=== PATIENT | male | born 1995 | race African-American/Black ===

== ENCOUNTER 2017-06-08 22:17 | Emergency (ER) | payer SELFPAY ==
[~2017-06-08] VITALS: Ht 185.4 cm; Wt 108.9 kg
--- NOTE | 2017-06-08 22:44 | ER Report ---
History and Physical Time Seen By MD: 22:43 Hx. of Stated Complaint: CHEAST PAIN FOR A WEEK; HARD TIME BREATHING; CHEAST HURTS WHEN BREATHING HPI/ROS CHIEF COMPLAINT: Cough HISTORY OF PRESENT ILLNESS: 21-year-old male complains of a cough productive of small amounts of blood has resolved and no ongoing hemoptysis. Violent coughing previously. Cough has been going on for a week and is normally dry. Associated symptoms include chest pain and tenderness along the costosternal border. Generalized muscle aches by aches and malaise. No known fevers. No other concerns or complaints. REVIEW OF SYSTEMS: Respiratory: No respiratory distress or cyanosis no foreign body inhalation Cardiovascular: No chest pain, no palpitations. Gastrointestinal: No vomiting, no abdominal pain. Musculoskeletal: No back pain. Allergies: Coded Allergies: No Known Drug Allergies (Unverified , 06/08/17) Home Meds No Active Prescriptions or Reported Meds Hx Substance Use Disorder: No Hx Alcohol Use: Yes (OCC.) Constitutional Vital Sign - Last 24 Hours 06/08/17 22:22 Temp 97.9 Pulse 73 Resp 18 B/P (MAP) 141/93 Pulse Ox 100 O2 Delivery Room Air Physical Exam General Appearance: The patient is alert, has no immediate need for airway protection and no current signs of toxicity. No acute distress Eyes: Pupils equal and round no injection. Pharynx: Mild erythema no signs of peritonsillar abscess Respiratory: Chest is non tender, lungs are clear to auscultation. No coughing during exam Cardiac: regular rate and rhythm no murmurs gallops or rubs Gastrointestinal: Abdomen is soft and non tender, no masses, bowel sounds normal. Musculoskeletal: Neck: Neck is supple and non tender. Extremities have full range of motion and are non tender. Skin: No rashes or lesions. No edema DIFFERENTIAL DIAGNOSIS: After history and physical exam differential diagnosis was considered for viral upper Rester infection, cough, pneumonia, influenza, strep Medical Decision Making Data Points Result Diagram: 06/08/17 8091 Laboratory Hematology Test 06/08/17 23:19 06/08/17 23:40 Red Blood Count 5.49 M/uL (4.00-5.60) Mean Corpuscular Volume 87.4 fL (80.0-96.0) Mean Corpuscular Hemoglobin 29.3 pg (26.0-33.0) Mean Corpuscular Hemoglobin Concent 33.5 g/dL (32.0-36.0) Red Cell Distribution Width 13.7 % (11.5-14.5) Mean Platelet Volume 7.0 fL (7.2-11.1) Neutrophils (%) (Auto) 54.3 % (39.4-72.5) Lymphocytes (%) (Auto) 36.2 % (17.6-49.6) Monocytes (%) (Auto) 7.8 % (4.1-12.4) Eosinophils (%) (Auto) 0.8 % (0.4-6.7) Basophils (%) (Auto) 0.9 % (0.3-1.4) Nucleated RBC Relative Count (auto) 0.0 /100WBC Neutrophils # (Auto) 4.2 K/uL (2.0-7.4) Lymphocytes # (Auto) 2.8 K/uL (1.3-3.6) Monocytes # (Auto) 0.6 K/uL (0.3-1.0) Eosinophils # (Auto) 0.1 K/uL (0.0-0.5) Basophils # (Auto) 0.1 K/uL (0.0-0.1) Nucleated RBC Absolute Count (auto) 0.00 K/uL Troponin I < 0.012 ng/ml Influenza Virus Type A (PCR) Negative (NEGATIVE) Influenza Virus Type B (PCR) Negative (NEGATIVE) Chemistry Test 06/08/17 23:19 06/08/17 23:40 White Blood Count 7.7 k/uL (4.5-11.0) Red Blood Count 5.49 M/uL (4.00-5.60) Hemoglobin 16.1 g/dL (14.0-18.0) Hematocrit 48.0 % (42.0-52.0) Mean Corpuscular Volume 87.4 fL (80.0-96.0) Mean Corpuscular Hemoglobin 29.3 pg (26.0-33.0) Mean Corpuscular Hemoglobin Concent 33.5 g/dL (32.0-36.0) Red Cell Distribution Width 13.7 % (11.5-14.5) Platelet Count 249 K/uL (150-450) Mean Platelet Volume 7.0 fL (7.2-11.1) Neutrophils (%) (Auto) 54.3 % (39.4-72.5) Lymphocytes (%) (Auto) 36.2 % (17.6-49.6) Monocytes (%) (Auto) 7.8 % (4.1-12.4) Eosinophils (%) (Auto) 0.8 % (0.4-6.7) Basophils (%) (Auto) 0.9 % (0.3-1.4) Nucleated RBC Relative Count (auto) 0.0 /100WBC Neutrophils # (Auto) 4.2 K/uL (2.0-7.4) Lymphocytes # (Auto) 2.8 K/uL (1.3-3.6) Monocytes # (Auto) 0.6 K/uL (0.3-1.0) Eosinophils # (Auto) 0.1 K/uL (0.0-0.5) Basophils # (Auto) 0.1 K/uL (0.0-0.1) Nucleated RBC Absolute Count (auto) 0.00 K/uL Troponin I < 0.012 ng/ml Influenza Virus Type A (PCR) Negative (NEGATIVE) Influenza Virus Type B (PCR) Negative (NEGATIVE) ED Course/Re-evaluation ED Course Plan a care agreed-upon part orders placed X-ray was reviewed and results discussed with the patient Serologies were reviewed and results discussed with the patient Home care use of medication therapy humidification of air follow-up outpatient and reasons to return to the ED were discussed with the patient. Patient is to return for ongoing or worsening hemoptysis. No signs of pulmonary embolus present today. Decision to Disposition Date: Jun 09, 2017 Decision to Disposition Time: 00:53 Depart Departure Latest Vital Signs Vital Signs Date Time Temp Pulse Resp B/P (MAP) Pulse Ox O2 Delivery O2 Flow Rate FiO2 06/08/17 22:22 97.9 73 18 141/93 100 Room Air Impression: Primary Impression: Cough Additional Impressions: Costochondritis History of hemoptysis Condition: Improved Disposition: HOME OR SELF-CARE New Scripts Benzonatate 100 Mg Cap (TESSALON PERLE 100 MG CAP) 100 Mg Capsule 100 MG PO TID, #15 CAP Prov: SARAH GILSE MD 06/09/17 Patient Instructions: Acute Cough (ED), Hemoptysis (ED) Problem Qualifiers SARAH GILES MD Jun 08, 2017 22:44
--- NOTE | 2017-06-08 23:13 | EKG ---
FAC[place] [facility] [place]IENT NAME: TACHO CARDENAS : [id number] MR: [id number] V: [id number] EXAM DATE: ORDERING PHYSICIAN: SARAH GILES TECHNOLOGIST: FROILAN Perales Reason : HTN Blood Pressure : / mmHG Vent. Rate : 065 BPM Atrial Rate : 065 BPM P-R Int : 186 ms QRS Dur : 088 ms QT Int : 386 ms P-R-T Axes : 042 070 058 degrees QTc Int : 401 ms Sinus rhythm Diffuse ST elevation - suspect early repolarization, but cannot exclude other causes No previous ECGs available Confirmed by KRYS LOMBARDO ([id number]) on 06/09/2017 5:48:08 AM Referred By: Confirmed By:KRYS LOMBARDO
--- NOTE | 2017-06-08 23:24 | RADIOLOGY IMAGING REPORT ---
[place] [facility] [place] Laurence [place] : 1995 MR: [id number] V: [id number] EXAM DATE: ORDERING PHYSICIAN: SARAH GILES TECHNOLOGIST: Location: [facility] - [place] Patient: Laurence Garcia : 1995 Visit/Account:[id number] Date of Sevice: 06/08/2017 CHEST: Indication: Dyspnea and wheezing. Technique: Frontal and lateral views were obtained. Comparison: None. Skeletal and soft tissue structures: Intact and unremarkable. Heart and mediastinum: Within normal limits. Lung morton: Well-expanded and clear. No focal or diffuse opacities. Pleural spaces: Unremarkable. Impression: No acute process. Report Dictated By: Shen Valiente MD at 06/08/2017 11:19 PM Report E-Signed By: Shen Valiente MD at 06/08/2017 11:20 PM [id number]
[2017-06-08 23:28] LABS: PLATELET COUNT, AUTOMATED 249 K/uL (150-450)
[2017-06-09] MEDS ORDERED: BENZ100C4 PO (00:55)
[2017-06-09 01:10] VITALS: BP 122/74
== END 2017-06-09 01:08 | disposition home or self-care (01) ==
LOC: ER 22:56
DX: M94.0 Chondrocostal junction syndrome [Tietze] (principal); R05 Cough
CPT/HCPCS: 36415; 71046; 84484; 85025; 87502; 93005; 99282

== ENCOUNTER 2017-07-13 05:42 | Emergency (ER) | payer MEDICAID ==
[~2017-07-13 05:42] MED LIST: BENZ100C4 PO
[2017-07-13 05:46] VITALS: BP 131/95
--- NOTE | 2017-07-13 05:59 | ER Report ---
History and Physical Time Seen By MD: 05:52 Hx. of Stated Complaint: Pt reports have cough for over a month now. Also reports sore throat. Pt reports coughing up blood last two days. HPI/ROS CHIEF COMPLAINT: cough, hemoptysis HISTORY OF PRESENT ILLNESS: This is a 21 year old male. He has had a cough for over a month now. Was evaluated here in the ER on June 08, negative x-ray at that time and negative influenza. He has never gotten better. Cough now worsened and coughing up some blood. Also with a sore throat and congestion. No chest pain. No abdominal pain or nausea/vomiting. REVIEW OF SYSTEMS: Constitutional: No fever or chills Eyes: No vision changes. ENT: As above. Cardiovascular: No chest pain. No palpitations. Respiratory: As above. Gastrointestinal: No abdominal pain. No nausea or vomiting. No change in bowel movements. No blood in the stool or melena. Genitourinary: No dysuria. No hematuria. Musculoskeletal: No musculoskeletal pain. Skin: No rashes. No bruising. Neurological: No weakness. No headache. Allergies: Coded Allergies: No Known Drug Allergies (Unverified , 07/13/17) Home Meds Active Scripts Benzonatate 100 Mg Cap (TESSALON PERLE 100 MG CAP) 100 Mg Capsule, 100 MG PO TID , #21 CAP Prov:RENEE GARCIA MD 07/13/17 Azithromycin (ZITHROMAX) 250 Mg Tablet, 0 PO QDAY, #6 TAB Take 2 tablets today, then one daily for 4 more days Prov:RENEE GARCIA MD 07/13/17 Discontinued Scripts Benzonatate 100 Mg Cap (TESSALON PERLE 100 MG CAP) 100 Mg Capsule, 100 MG PO TID , #15 CAP Prov:SARAH GILES MD 06/09/17 Reviewed Nurses Notes: Yes Hx Substance Use Disorder: No Hx Alcohol Use: Yes (OCC.) Constitutional Vital Sign - Last 24 Hours 07/13/17 07/13/17 07/13/17 07/13/17 05:45 05:46 06:42 06:57 Temp 98.8 Pulse 71 65 69 Resp 12 B/P (MAP) 131/95 (107) 131/95 Pulse Ox 99 96 97 O2 Delivery Room Air 07/13/17 07:12 Pulse 69 Pulse Ox 96 Physical Exam General Appearance: The patient is alert. No acute distress. Eyes: Pupils are equal, round. No pallor, injection or icterus. ENT: Mucous membranes are moist. Normal oral mucosa. Posterior oropharynx has erythema and hypertrophy, but no exudates. Neck: Supple and non tender. Some submandibular lymphadenopathy. Respiratory: Lungs are clear to auscultation. Cardiovascular: Regular rate and rhythm. No murmurs, gallops or rubs. Normal capillary refill. No edema. Gastrointestinal: Abdomen is soft and non tender. Nondistended. Neurological: Alert and oriented x3. No focal neurologic deficits. Skin: Warm and dry. DIFFERENTIAL DIAGNOSIS: After history and physical exam, differential diagnosis was considered for cough with hemoptysis Medical Decision Making Data Points Result Diagram: 07/13/1705 07/13/17 06 Laboratory Hematology Test 07/13/17 06:05 Red Blood Count 5.75 M/uL (4.00-5.60) Mean Corpuscular Volume 87.3 fL (80.0-96.0) Mean Corpuscular Hemoglobin 29.6 pg (26.0-33.0) Mean Corpuscular Hemoglobin Concent 33.9 g/dL (32.0-36.0) Red Cell Distribution Width 13.5 % (11.5-14.5) Mean Platelet Volume 7.0 fL (7.2-11.1) Neutrophils (%) (Auto) 49.4 % (39.4-72.5) Lymphocytes (%) (Auto) 41.2 % (17.6-49.6) Monocytes (%) (Auto) 7.5 % (4.1-12.4) Eosinophils (%) (Auto) 1.2 % (0.4-6.7) Basophils (%) (Auto) 0.7 % (0.3-1.4) Nucleated RBC Relative Count (auto) 0.0 /100WBC Neutrophils # (Auto) 4.4 K/uL (2.0-7.4) Lymphocytes # (Auto) 3.7 K/uL (1.3-3.6) Monocytes # (Auto) 0.7 K/uL (0.3-1.0) Eosinophils # (Auto) 0.1 K/uL (0.0-0.5) Basophils # (Auto) 0.1 K/uL (0.0-0.1) Nucleated RBC Absolute Count (auto) 0.00 K/uL Prothrombin Time 13.4 seconds (12.0-14.4) Prothromb Time International Ratio 1.02 Activated Partial Thromboplast Time 29 seconds (23-35) Sodium Level 139 mmol/L (137-145) Potassium Level 3.8 mmol/L (3.5-5.0) Chloride Level 102 mmol/L (98-107) Carbon Dioxide Level 24 mmol/L (22-30) Blood Urea Nitrogen 19 mg/dl (9-21) Creatinine 1.10 mg/dl (0.66-1.25) Glomerular Filtration Rate Calc > 60.0 Random Glucose 93 mg/dl (75-110) Calcium Level 9.4 mg/dl (8.4-10.2) Total Bilirubin 0.5 mg/dl (0.2-1.3) Aspartate Amino Transf (AST/SGOT) 36 U/L (0-35) Alanine Aminotransferase (ALT/SGPT) 55 U/L (0-56) Alkaline Phosphatase 67 U/L (0-126) Total Protein 7.9 gm/dl (6.3-8.2) Albumin 4.4 g/dl (3.5-5.0) Influenza Virus Type A (PCR) Negative (NEGATIVE) Influenza Virus Type B (PCR) Negative (NEGATIVE) Group A Streptococcus Screen Negative (NEGATIVE) Chemistry Test 07/13/17 06:05 White Blood Count 8.9 k/uL (4.5-11.0) Red Blood Count 5.75 M/uL (4.00-5.60) Hemoglobin 17.0 g/dL (14.0-18.0) Hematocrit 50.2 % (42.0-52.0) Mean Corpuscular Volume 87.3 fL (80.0-96.0) Mean Corpuscular Hemoglobin 29.6 pg (26.0-33.0) Mean Corpuscular Hemoglobin Concent 33.9 g/dL (32.0-36.0) Red Cell Distribution Width 13.5 % (11.5-14.5) Platelet Count 294 K/uL (150-450) Mean Platelet Volume 7.0 fL (7.2-11.1) Neutrophils (%) (Auto) 49.4 % (39.4-72.5) Lymphocytes (%) (Auto) 41.2 % (17.6-49.6) Monocytes (%) (Auto) 7.5 % (4.1-12.4) Eosinophils (%) (Auto) 1.2 % (0.4-6.7) Basophils (%) (Auto) 0.7 % (0.3-1.4) Nucleated RBC Relative Count (auto) 0.0 /100WBC Neutrophils # (Auto) 4.4 K/uL (2.0-7.4) Lymphocytes # (Auto) 3.7 K/uL (1.3-3.6) Monocytes # (Auto) 0.7 K/uL (0.3-1.0) Eosinophils # (Auto) 0.1 K/uL (0.0-0.5) Basophils # (Auto) 0.1 K/uL (0.0-0.1) Nucleated RBC Absolute Count (auto) 0.00 K/uL Prothrombin Time 13.4 seconds (12.0-14.4) Prothromb Time International Ratio 1.02 Activated Partial Thromboplast Time 29 seconds (23-35) Glomerular Filtration Rate Calc > 60.0 Calcium Level 9.4 mg/dl (8.4-10.2) Total Bilirubin 0.5 mg/dl (0.2-1.3) Aspartate Amino Transf (AST/SGOT) 36 U/L (0-35) Alanine Aminotransferase (ALT/SGPT) 55 U/L (0-56) Alkaline Phosphatase 67 U/L (0-126) Total Protein 7.9 gm/dl (6.3-8.2) Albumin 4.4 g/dl (3.5-5.0) Influenza Virus Type A (PCR) Negative (NEGATIVE) Influenza Virus Type B (PCR) Negative (NEGATIVE) Group A Streptococcus Screen Negative (NEGATIVE) Coagulation Test 07/13/17 06:05 Prothrombin Time 13.4 seconds Prothromb Time International Ratio 1.02 Activated Partial Thromboplast Time 29 seconds EKG/Imaging Imaging CTA CHEST WW/O CNTR (PULM ANG) HISTORY: Hematemesis. TECHNIQUE: CTA chest with intravenous contrast attention to pulmonary arteries. Sagittal, coronal and slab 3D MIP coronal reconstructed images were also created for further evaluation and interpretation. One of the following dose optimization techniques was utilized in the performance of this exam: Automated exposure control; adjustment of the mA and/ or kV according to the patient's size; or use of an iterative reconstruction technique. Specific details can be referenced in the facility's radiology CT exam operational policy. CONTRAST: 75 mL Isovue-370. COMPARISON: None. FINDINGS: Heart/vessels: Negative. Satisfactory opacification of the pulmonary arteries without visualized pulmonary embolus. Mediastinum: Small amount of wedge-shaped soft tissue within the anterior mediastinum, most compatible with residual thymic tissue. The esophagus is grossly unremarkable. Lymph nodes: Negative. Lungs/pleura: 2-3 mm solid nodule within the left upper lobe (image 123 of series 4). Otherwise negative. No visualized mass, consolidation, or infiltrate. Visualized upper abdomen: Negative. Bones/soft tissues: Moderate bilateral gynecomastia. IMPRESSION: 1. No acute findings. There is no visualized pulmonary embolus. No CT explanation for the patient's clinical symptoms. 2. Incidental note of a 2-3 mm solid nodule within the left upper lobe which is most compatible with prior infectious/inflammatory process. Report Dictated By: Sánchez Pitts MD at 07/13/2017 6:39 AM ED Course/Re-evaluation Clinical Indication for ER IV: IV Access ED Course Uncertain cause of symptoms. Possible viral. Some changes in lungs that could represent atypical infection as well. No pneumonia. Will treat with benzonatate and Azithromycin. Recommend follow-up with Pulmonology. Decision to Disposition Date: Jul 13, 2017 Decision to Disposition Time: 06:52 Depart Departure Latest Vital Signs Vital Signs Date Time Temp Pulse Resp B/P (MAP) Pulse Ox O2 Delivery O2 Flow Rate FiO2 07/13/17 07:12 69 96 07/13/17 05:46 98.8 12 131/95 Room Air Impression: Primary Impression: Cough Condition: Condition Unchanged Disposition: HOME OR SELF-CARE New Scripts Benzonatate 100 Mg Cap (TESSALON PERLE 100 MG CAP) 100 Mg Capsule 100 MG PO TID, #21 CAP Prov: RENEE GARCIA MD 07/13/17 Azithromycin (ZITHROMAX) 250 Mg Tablet 0 PO QDAY, #6 TAB Take 2 tablets today, then one daily for 4 more days Prov: RENEE GARCIA MD 07/13/17 Patient Instructions: Chronic Cough (ED) Additional Instructions: We did not find a specific cause of your cough. Labs were normal tonight. We would like to have you follow-up with a resource economist. Please call and make an appointment. RENEE GARCIA MD Jul 13, 2017 05:59
[2017-07-13] MEDS ORDERED: IOPAMIDOL 76% 75 ML INFUS BTL 75 ML ONE (06:11)
[2017-07-13] MEDS ORDERED: NS 0.9% 150 ML BAG 150 ML ONE (06:14)
[2017-07-13 06:26] LABS: PLATELET COUNT, AUTOMATED 294 K/uL (150-450)
[2017-07-13 06:44] LABS: INR 1.02
--- NOTE | 2017-07-13 06:47 | RADIOLOGY IMAGING REPORT ---
FACILITY: [facility] PATIENT NAME: Laurence Garcia : 1995 MR: [id number] V: [id number] EXAM DATE: ORDERING PHYSICIAN: RENEE GARCIA TECHNOLOGIST: Location: [facility] Patient: Laurence Garcia : 1995 Visit/Account:[id number] Date of Sevice: 07/13/2017 CTA CHEST WW/O CNTR (PULM ANG) HISTORY: Hematemesis. TECHNIQUE: CTA chest with intravenous contrast attention to pulmonary arteries. Sagittal, coronal a nd slab 3D MIP coronal reconstructed images were also created for further evaluation and interpretati on. One of the following dose optimization techniques was utilized in the performance of this exam: Autom ated exposure control; adjustment of the mA and/or kV according to the patient's size; or use of an i terative reconstruction technique. Specific details can be referenced in the facility's radiology CT exam operational policy. CONTRAST: 75 mL Isovue-370. COMPARISON: None. FINDINGS: Heart/vessels: Negative. Satisfactory opacification of the pulmonary arteries without visualized pul monary embolus. Mediastinum: Small amount of wedge-shaped soft tissue within the anterior mediastinum, most compatib le with residual thymic tissue. The esophagus is grossly unremarkable. Lymph nodes: Negative. Lungs/pleura: 2-3 mm solid nodule within the left upper lobe (image 123 of series 4). Otherwise nega tive. No visualized mass, consolidation, or infiltrate. Visualized upper abdomen: Negative. Bones/soft tissues: Moderate bilateral gynecomastia. IMPRESSION: 1. No acute findings. There is no visualized pulmonary embolus. No CT explanation for the patient's c linical symptoms. 2. Incidental note of a 2-3 mm solid nodule within the left upper lobe which is most compatible with prior infectious/inflammatory process. Report Dictated By: Sánchez Pitts MD at 07/13/2017 6:39 AM Report E-Signed By: Sánchez Pitts MD at 07/13/2017 6:42 AM [id number]
[2017-07-13] MEDS ORDERED: BENZ100C4 PO (06:54)
[2017-07-13] MEDS ORDERED: AZIT-1 PO (06:54)
== END 2017-07-13 07:20 | disposition home or self-care (01) ==
LOC: ER 05:59
DX: R05 Cough (principal); R91.1 Solitary pulmonary nodule
CPT/HCPCS: 71275; 85025; 85610; 85730; 87081; 87502; 87880; 99284; Q9967; 82040; 82247; 82310; 82374; 82435; 82565; 82947; 84075; 84132; 84155; 84295; 84450; 84460; 84520

== ENCOUNTER 2017-07-29 23:07 | Emergency (ER) | payer MEDICAID ==
[~2017-07-29 23:07] MED LIST changes: +AZIT-1 PO
--- NOTE | 2017-07-29 23:12 | ER Report ---
History and Physical Time Seen By MD: 23:11 HPI/ROS CHIEF COMPLAINT: Sore throat, cough HISTORY OF PRESENT ILLNESS: 21-year-old male presents ambulatory to the ER complaining of illness for over 10 days. Patient notes that his throat is become much more sore over the last 2-3 days. He's having increasing cough of colored sputum. He notes no fevers. He denies exposure to ill contacts or ear pain. Patient denies history of allergies or asthma. He notes no difficulty swallowing or breathing. REVIEW OF SYSTEMS: Respiratory: No cough, no dyspnea. Cardiovascular: No chest pain, no palpitations. Gastrointestinal: No vomiting, no abdominal pain. Musculoskeletal: No back pain. Allergies: Coded Allergies: No Known Drug Allergies (Unverified , 07/13/17) Home Meds Active Scripts Amoxicillin 500 Mg Tab (AMOXICILLIN 500 MG TAB) 500 Mg Tablet, 2 TAB PO Q12H for infection, #40 TAB Prov:LUIS EKEN Esa BLACKWELL 07/29/17 Discontinued Scripts Benzonatate 100 Mg Cap (TESSALON PERLE 100 MG CAP) 100 Mg Capsule, 100 MG PO TID , #21 CAP Prov:RENEE GARCIA MD 07/13/17 Azithromycin (ZITHROMAX) 250 Mg Tablet, 0 PO QDAY, #6 TAB Take 2 tablets today, then one daily for 4 more days Prov:RENEE GARCIA MD 07/13/17 Reviewed Nurses Notes: Yes Old Medical Records Reviewed: Yes Hx Substance Use Disorder: No Hx Alcohol Use: Yes (OCC.) Constitutional Vital Sign - Last 24 Hours 07/29/17 07/29/17 23:12 23:36 Temp 98.3 Pulse 75 70 Resp 19 19 B/P (MAP) 105/93 119/83 (95) Pulse Ox 97 97 O2 Delivery Room Air Room Air Physical Exam General Appearance: The patient is alert, has no immediate need for airway protection and no current signs of toxicity. Mild distress HEENT: Pupils equal and round no injection. TMs normal, oropharynx with moderate erythema, purulent postnasal drip Respiratory: Chest is non tender, lungs are clear to auscultation. No wheezing or rails Cardiac: regular rate and rhythm Gastrointestinal: Abdomen is soft and non tender, no masses, bowel sounds normal. No splenomegaly Musculoskeletal: Neck: Neck is supple and non tender. No lymphadenopathy Extremities have full range of motion and are non tender. Skin: No rashes or lesions. DIFFERENTIAL DIAGNOSIS: After history and physical exam differential diagnosis was considered for otitis media, sinusitis, pharyngitis, pneumonia, bronchitis, influenza, dental pain. Medical Decision Making ED Course/Re-evaluation ED Course Patient was admitted to an examination room. H&P was done. The differential diagnoses was considered. On clinical examination. Patient has findings of acute pharyngitis and sinusitis. He also has a productive cough from his lungs , likely bronchitis. Patient we treated with amoxicillin. He is given a single dose of Decadron 4 inflammatory relief. He is advised. Amoxicillin 1 g by mouth twice a day for 10 days. He is advised ibuprofen 200 mg 3 tablets 3 times daily with food for several days. Decision to Disposition Date: Jul 29, 2017 Decision to Disposition Time: 23:23 Depart Departure Latest Vital Signs Vital Signs Date Time Temp Pulse Resp B/P (MAP) Pulse Ox O2 Delivery O2 Flow Rate FiO2 07/29/17 23:36 70 19 119/83 (95) 97 Room Air 07/29/17 23:12 98.3 Impression: Primary Impression: Pharyngitis Condition: Improved Disposition: HOME OR SELF-CARE Referrals: JOYCE DURAN MD New Scripts Amoxicillin 500 Mg Tab (AMOXICILLIN 500 MG TAB) 500 Mg Tablet 2 TAB PO Q12H for infection, #40 TAB Prov: KEN KIMBROUGH DO 07/29/17 Patient Instructions: Pharyngitis (ED) Additional Instructions: Take ibuprofen 200 mg 3 tablets 3 times a day for 3-5 days Follow-up with student health or primary care if unimproved in 3-5 days Problem Qualifiers Primary Impression: Pharyngitis Pharyngitis/tonsillitis etiology: unspecified etiology Qualified Codes: J02.9 - Acute pharyngitis, unspecified KEN KIMBROUGH DO Jul 29, 2017 23:11
[2017-07-29] MEDS ORDERED: AMOXICILLIN 500 MG CAP PO ONE (23:25)
[2017-07-29] MEDS ORDERED: DEXAMETHASONE 4 MG TAB PO ONE (23:25)
[2017-07-29] MEDS ORDERED: IBUPROFEN 600 MG TAB PO ONE (23:25)
[2017-07-29] MEDS ORDERED: AMOX500T10 PO (23:25)
[2017-07-29 23:36] VITALS: BP 119/83
== END 2017-07-29 23:36 | disposition home or self-care (01) ==
LOC: ER 23:28
DX: J02.9 Acute pharyngitis, unspecified (principal)
CPT/HCPCS: 99282; J8540

== ENCOUNTER → 2017-08-10 | Outpatient (CLI) | payer MEDICAID ==
[~2017-08-10] MED LIST changes: +AMOX500T10 PO
== END ==
LOC: LAB 15:31
PROVIDERS: ATTEND Nurse Practitioner Primary Care
DX: J02.9 Acute pharyngitis, unspecified (principal)
CPT/HCPCS: 36415; 86308; 86663; 86664; 86665; 86703; 87081

== ENCOUNTER 2017-08-17 19:37 | Emergency (ER) | payer MEDICAID ==
[~2017-08-17 19:37] MED LIST changes: +Magic Mouthwash PO; +OMEP-125 PO
--- NOTE | 2017-08-17 19:40 | ER Report ---
History and Physical Time Seen By MD: 19:38 HPI/ROS CHIEF COMPLAINT: Difficulty swallowing, sore throat HISTORY OF PRESENT ILLNESS: 21-year-old black male presenting to the [facility] with difficulty swallowing. Patient's been sick for several weeks. Patient was seen approximate 4 weeks ago and treated with amoxicillin for sore throat. He's been followed up as an outpatient. He's been referred to ENT. He is appointment on 09/05/17 for consultation. Patient was prescribed Magic mouthwash. Patient presents with fever tonight to 103. Patient gets no relief with Tylenol and ibuprofen. Patient denies nausea or vomiting. He denies ear pain. REVIEW OF SYSTEMS: Respiratory: No cough, no dyspnea. Cardiovascular: No chest pain, no palpitations. Gastrointestinal: No vomiting, no abdominal pain. Musculoskeletal: No back pain. Allergies: Coded Allergies: No Known Drug Allergies (Unverified , 08/17/17) Home Meds Active Scripts Tramadol Hcl (TRAMADOL HCL) 50 Mg Tablet, 1 TAB PO Q6H for PAIN, #12 MG TAKE ONE TO TWO TABLETS BY MOUTH EVERY SIX HOURS NEEDED Prov:KEN KIMBROUGH Esa DO 08/17/17 Prednisone (PREDNISONE) 20 Mg Tablet, 20 MG PO QDAY for reduce throat swelling, #7 Prov:KEN KIMBROUGH DO 08/17/17 Cefuroxime Axetil (CEFUROXIME) 500 Mg Tablet, 500 MG PO BID for infection, #14 TAB Prov:KEN KIMBROUGH DO 08/17/17 Omeprazole (OMEPRAZOLE) 20 Mg Capsule.dr, 1 CAP PO BID for 30 Days, #60 CAP 0 Refills Prov:WAN FARIA DNP, FNP-BC 08/15/17 Discontinued Scripts [Magic Mouthwash] No Conflict Check, 5 ML PO Q4-6H Y for Throat Pain, #100 ML 0 Refills Swish and swallow 5 mL every 4-6 hours as needed for throat pain. Prov:WAN FARIA DNP, FNP-BC 08/15/17 Smoking Status: Current: Every Day Smoker Hx Substance Use Disorder: No Hx Alcohol Use: Yes (OCC.) Constitutional Vital Sign - Last 24 Hours 08/17/17 08/17/17 08/17/17 08/17/17 19:41 19:52 20:07 20:21 Temp 103.1 Pulse 131 129 132 Resp 24 B/P (MAP) 128/76 125/84 (98) Pulse Ox 97 95 100 08/17/17 08/17/17 08/17/17 08/17/17 20:22 20:52 21:00 21:05 Pulse 122 117 109 B/P (MAP) 127/69 (88) Pulse Ox 94 94 95 08/17/17 08/17/17 08/17/17 08/17/17 21:20 21:30 21:35 21:50 Pulse 108 107 104 B/P (MAP) 120/65 (83) Pulse Ox 94 95 95 Physical Exam General Appearance: The patient is alert, has no immediate need for airway protection and no current signs of toxicity. Vital signs stable, fever 103.1 HEENT: Pupils equal and round no injection. TMs normal, oropharynx moderate erythema and redness. He is no exudate. There is tonsillar hypertrophy. Respiratory: Chest is non tender, lungs are clear to auscultation. No wheezing or rails Cardiac: regular rate and rhythm Gastrointestinal: Abdomen is soft and non tender, no masses, bowel sounds normal. Musculoskeletal: Neck: Neck is supple and non tender. Extremities have full range of motion and are non tender. Skin: No rashes or lesions. DIFFERENTIAL DIAGNOSIS: After history and physical exam differential diagnosis was considered for adult fever including but not limited to viral syndromes including influenza, urinary tract infection, streptococcal pharyngitis, mononucleosis, sinusitis, lymphadenopathy, pneumonia and sepsis. Medical Decision Making Data Points Result Diagram: 08/17/171958 Laboratory Hematology Test 08/17/17 19:46 08/17/17 19:59 Monoscreen Negative (NEGATIVE) Influenza Virus Type A (PCR) Negative (NEGATIVE) Influenza Virus Type B (PCR) Negative (NEGATIVE) Group A Streptococcus Screen Negative (NEGATIVE) Red Blood Count 5.47 M/uL (4.00-5.60) Mean Corpuscular Volume 86.7 fL (80.0-96.0) Mean Corpuscular Hemoglobin 30.1 pg (26.0-33.0) Mean Corpuscular Hemoglobin Concent 34.7 g/dL (32.0-36.0) Red Cell Distribution Width 13.3 % (11.5-14.5) Mean Platelet Volume 6.8 fL (7.2-11.1) Neutrophils % (Manual) 76 % (39.4-72.5) Lymphocytes % (Manual) 14 % (17.6-49.6) Monocytes % (Manual) 10 % (4.1-12.4) Eosinophils % (Manual) 0 % (0.4-6.7) Basophils % (Manual) 0 % (0.3-1.4) C-Reactive Protein 7.5 mg/dl (<1.0) Chemistry Test 08/17/17 19:46 08/17/17 19:59 Monoscreen Negative (NEGATIVE) Influenza Virus Type A (PCR) Negative (NEGATIVE) Influenza Virus Type B (PCR) Negative (NEGATIVE) Group A Streptococcus Screen Negative (NEGATIVE) White Blood Count 12.5 k/uL (4.5-11.0) Red Blood Count 5.47 M/uL (4.00-5.60) Hemoglobin 16.5 g/dL (14.0-18.0) Hematocrit 47.5 % (42.0-52.0) Mean Corpuscular Volume 86.7 fL (80.0-96.0) Mean Corpuscular Hemoglobin 30.1 pg (26.0-33.0) Mean Corpuscular Hemoglobin Concent 34.7 g/dL (32.0-36.0) Red Cell Distribution Width 13.3 % (11.5-14.5) Platelet Count 237 K/uL (150-450) Mean Platelet Volume 6.8 fL (7.2-11.1) Neutrophils % (Manual) 76 % (39.4-72.5) Lymphocytes % (Manual) 14 % (17.6-49.6) Monocytes % (Manual) 10 % (4.1-12.4) Eosinophils % (Manual) 0 % (0.4-6.7) Basophils % (Manual) 0 % (0.3-1.4) C-Reactive Protein 7.5 mg/dl (<1.0) EKG/Imaging Imaging Results: CT scan of the neck soft tissue with IV contrast was obtained. The results of the study are CT neck with IV contrast History: Difficulty swallowing, sore throat. COMPARISON STUDIES: none . TECHNIQUE: Spiral scan was obtained from the hard palate through the upper chest during injection of nonionic iodinated intravenous contrast. One of the following dose optimization techniques was utilized in the performance of this exam: Automated exposure control; adjustment of the mA and/or kV according to the patient's size; or use of an iterative reconstruction technique. Specific details can be referenced in the facility's radiology CT exam operational policy. Contrast: 75 mL of IV Isovue-370. FINDINGS: Suprahyoid neck: negative Infrahyoid neck: negative Airway: Tonsillar pillars are mildly enlarged. No evidence of abscess Lymph node assessment: Mildly prominent bilateral lymph nodes left greater than right likely reactive. Visualized orbits / brain / paranasal sinuses: negative Vessels: Vessels Bony structures: Bones Upper chest: negative IMPRESSION: Mild enlargement of the tonsillar pillars without evidence of abscess. Scattered mildly prominent bilateral cervical lymph nodes are most likely reactive. The study was read by the radiologist. I viewed the images myself on the PACS system. ED Course/Re-evaluation Clinical Indication for ER IV: Hydration, IV Access ED Course Patient was admitted to an examination room. H&P was done. The differential diagnoses was considered. On clinical examination. Patient has gross oral pharyngeal swelling. He's had it for several weeks. He did not respond to course of amoxicillin. A CT scan of the neck was performed to rule out peritonsillar abscess. Patient's white blood cell count is 12.4. A mono test is negative. Rapid strep is negative, influenza is negative. Patient's treated with IV Toradol and Decadron. He feels much better. On reevaluation. Be discharged home on Ceftin and prednisone. He is given prescription for Percocet for temporary pain relief. He is advised ibuprofen 600 mg 3 times daily. He is advised to keep his follow-up appointment with ENT as planned on . Decision to Disposition Date: Aug 17, 2017 Decision to Disposition Time: 21:33 Depart Departure Latest Vital Signs Vital Signs Date Time Temp Pulse Resp B/P (MAP) Pulse Ox O2 Delivery O2 Flow Rate FiO2 08/17/17 21:50 104 95 08/17/17 21:30 120/65 (83) 08/17/17 19:41 103.1 24 Impression: Primary Impression: Tonsillar hypertrophy Additional Impressions: Reactive lymphadenopathy Fever Condition: Improved Disposition: HOME OR SELF-CARE New Scripts Tramadol Hcl (TRAMADOL HCL) 50 Mg Tablet 1 TAB PO Q6H for PAIN, #12 MG TAKE ONE TO TWO TABLETS BY MOUTH EVERY SIX HOURS NEEDED Prov: KEN KIMBROUGH DO 08/17/17 Prednisone (PREDNISONE) 20 Mg Tablet 20 MG PO QDAY for reduce throat swelling, #7 Prov: KEN KIMBROUGH DO 08/17/17 Cefuroxime Axetil (CEFUROXIME) 500 Mg Tablet 500 MG PO BID for infection, #14 TAB Prov: KEN KIMBROUGH DO 08/17/17 Patient Instructions: Lymphadenopathy (ED), Tonsillitis (ED) Additional Instructions: Take ibuprofen 200 mg 3 tablets 3 times a day with food Follow-up with ENT and primary care as planned Problem Qualifiers Additional Impressions: Fever Fever type: unspecified Qualified Codes: R50.9 - Fever, unspecified KEN KIMBROUGH DO Aug 17, 2017 19:40
[2017-08-17] MEDS ORDERED: KETOROLAC 30 MG/ML VIAL IVP ONE (19:55)
[2017-08-17] MEDS ORDERED: ACETAMINOPHEN 325 MG TAB PO ONE (19:55)
[2017-08-17] MEDS ORDERED: NS(*) 0.9% 1000 ML BAG 1,000 ML IV ONE (19:55)
[2017-08-17] MEDS ORDERED: DEXAMETHASONE SOD PHOS 10MG/ML IVP ONE (19:55)
[2017-08-17] MEDS ORDERED: IOPAMIDOL 76% 75 ML INFUS BTL 75 ML ONE (20:04)
[2017-08-17 20:09] LABS: PLATELET COUNT, AUTOMATED 237 K/uL (150-450)
--- NOTE | 2017-08-17 21:20 | RADIOLOGY IMAGING REPORT ---
FACILITY: [facility] PATIENT NAME: Laurence Garcia : 1995 MR: [id number] V: [id number] EXAM DATE: ORDERING PHYSICIAN: KEN KIMBROUGH TECHNOLOGIST: Location: [facility] Patient: Laurence Garcia : 1995 Visit/Account:[id number] Date of Sevice: 08/17/2017 EXAMINATION: CT neck with IV contrast History: Difficulty swallowing, sore throat. COMPARISON STUDIES: none . TECHNIQUE: Spiral scan was obtained from the hard palate through the upper chest during injection o f nonionic iodinated intravenous contrast. One of the following dose optimization techniques was util ized in the performance of this exam: Automated exposure control; adjustment of the mA and/or kV acco rding to the patient's size; or use of an iterative reconstruction technique. Specific details can be referenced in the facility's radiology CT exam operational policy. Contrast: 75 mL of IV Isovue-370. FINDINGS: Suprahyoid neck: negative Infrahyoid neck: negative Airway: Tonsillar pillars are mildly enlarged. No evidence of abscess Lymph node assessment: Mildly prominent bilateral lymph nodes left greater than right likely reactive . Visualized orbits / brain / paranasal sinuses: negative Vessels: Vessels Bony structures: Bones Upper chest: negative IMPRESSION: Mild enlargement of the tonsillar pillars without evidence of abscess. Scattered mildly prominent primitivo ateral cervical lymph nodes are most likely reactive. Report Dictated By: Norberto Hernández MD at 08/17/2017 9:10 PM Report E-Signed By: Norberto Hernández MD at 08/17/2017 9:16 PM WSN:[email or web address]
[2017-08-17 21:30] VITALS: BP 120/65
[2017-08-17] MEDS ORDERED: TRAM-420 PO (21:36)
[2017-08-17] MEDS ORDERED: CEFU500T10 PO (21:36)
[2017-08-17] MEDS ORDERED: PRED20TA6 PO (21:36)
[2017-08-17] MEDS ORDERED: traMADol 50 MG TAB TH 2 TAB/BOTTLE PO ONE (21:40)
[2017-08-17] MEDS ORDERED: CEFUROXIME AXETIL 250 MG TAB PO ONE (21:40)
== END 2017-08-17 22:00 | disposition home or self-care (01) ==
LOC: ER 20:03
DX: J35.1 Hypertrophy of tonsils (principal); R59.1 Generalized enlarged lymph nodes; R50.9 Fever, unspecified
CPT/HCPCS: 70491; 85007; 85027; 86140; 86308; 87081; 87502; 87880; 96361; 96374; 96375; 99284; C9399; J1100; J1885; J7030; Q9967

== ENCOUNTER 2017-12-15 23:23 | Emergency (ER) | payer MEDICAID ==
[~2017-12-15 23:23] MED LIST changes: +CEFU500T10 PO; +NYST100016 MT; +PRED20TA6 PO; +TRAM-420 PO
[2017-12-15 23:26] VITALS: BP 137/81
--- NOTE | 2017-12-15 23:34 | ER Report ---
History and Physical Time Seen By MD: 23:33 Hx. of Stated Complaint: SORE THROAT FOR 3 DAYS; HAD INFECTION LAST MONTH; GOT BETTER; DOESNT KNOW WHAT HAPPENED NOW HPI/ROS CHIEF COMPLAINT: Sore throat, swollen lymph glands HISTORY OF PRESENT ILLNESS: 22-year-old black male presents ambulatory to the ER complaining of sore throat. He's had several months of sore throat. It's been reoccurring. He's been seen by ENT. Is also followed by Dr. Colin. Patient notes increased symptoms over the last 3 days. He is a smoker. Patient denies fever or chills. Patient denies nausea or vomiting. Patient denies ear pain. Patient denies sinus drainage. REVIEW OF SYSTEMS: Respiratory: No cough, no dyspnea. Cardiovascular: No chest pain, no palpitations. Gastrointestinal: No vomiting, no abdominal pain. Musculoskeletal: No back pain. Allergies: Coded Allergies: No Known Drug Allergies (Unverified , 08/17/17) Home Meds Active Scripts Prednisone (PREDNISONE) 20 Mg Tablet, 20 MG PO QDAY for reduce the inflammation for 7 Days, #6 2 tablets by mouth daily for 2 days then 1 tablet daily for 2 days Prov:LUIS EKEN DO 12/16/17 Tramadol Hcl (TRAMADOL HCL) 50 Mg Tablet, 1 TAB PO Q6H Y for PAIN, #12 MG TAKE ONE TABLETS BY MOUTH EVERY SIX HOURS NEEDED Prov:KEN KIMBROUGH Esa DO 12/16/17 Discontinued Scripts Nystatin (Nystatin) 100,000 Unit/Ml Oral.susp, 5 ML MT QID for 14 Days, #300 ML swish in mouth and then swallow Prov:JOYCE COLIN MD 10/14/17 Omeprazole (OMEPRAZOLE) 20 Mg Capsule.dr, 1 CAP PO BID for 30 Days, #60 CAP 0 Refills Prov:WAN FARIA DNP, MASTER TECHNICIAN-BC 08/15/17 Reviewed Nurses Notes: Yes Old Medical Records Reviewed: Yes Smoking Status: Current: Every Day Smoker Exposure to Second Hand Smoke?: No Hx Substance Use Disorder: No Hx Alcohol Use: Yes (OCC.) Constitutional Vital Sign - Last 24 Hours 12/15/17 23:26 Temp 98.1 Pulse 60 Resp 17 B/P (MAP) 137/81 Pulse Ox 97 O2 Delivery Room Air Physical Exam General Appearance: The patient is alert, has no immediate need for airway protection and no current signs of toxicity. Vital signs stable, afebrile, pulse ox normal HEENT: Pupils equal and round no injection. TMs normal, cerumen in the left tympanic canal, oropharynx with moderate erythema, no exudate or petechiae Respiratory: Chest is non tender, lungs are clear to auscultation. No wheezing or rails Cardiac: regular rate and rhythm Gastrointestinal: Abdomen is soft and non tender, no masses, bowel sounds normal. Musculoskeletal: Neck: Neck is supple and non tender. Extremities have full range of motion and are non tender. Skin: No rashes or lesions. DIFFERENTIAL DIAGNOSIS: After history and physical exam differential diagnosis was considered for pharyngitis, thrush, lymphadenopathy, postnasal drip from sinus infection, stomatitis, canker sores Medical Decision Making Data Points Laboratory Hematology Test 12/15/17 23:32 Group A Streptococcus Screen Negative (NEGATIVE) Chemistry Test 12/15/17 23:32 Group A Streptococcus Screen Negative (NEGATIVE) ED Course/Re-evaluation ED Course Patient was admitted to an examination room. H&P was done. The differential diagnosis was considered. Patient with acute tonsillar hypertrophy likely viral in nature. Rapid strep was performed which is negative. Patient's complaining of throat swelling and pain. He is unable to sleep. I did discuss the option of antibiotic treatment with him. He states that Dr. Pastor ENT advised against antibiotics. I discussed the option of antifungals disease previously had thrush. He did improve on antifungals orally. At this time we' ll just do Decadron 8 mg by mouth. Patient be discharged home on tramadol and prednisone. Patient's advised to follow-up with Dr. Helio Pastor. Decision to Disposition Date: Dec 16, 2017 Decision to Disposition Time: 00:11 Depart Departure Latest Vital Signs Vital Signs Date Time Temp Pulse Resp B/P (MAP) Pulse Ox O2 Delivery O2 Flow Rate FiO2 12/15/17 23:26 98.1 60 17 137/81 97 Room Air Impression: Primary Impression: Tonsillar hypertrophy Additional Impression: Reactive lymphadenopathy Condition: Improved Disposition: HOME OR SELF-CARE Referrals: JOYCE COLIN MD, JR,HELIO Foster MD New Scripts Prednisone (PREDNISONE) 20 Mg Tablet 20 MG PO QDAY for reduce the inflammation for 7 Days, #6 2 tablets by mouth daily for 2 days then 1 tablet daily for 2 days Prov: KEN KIMBROUGH DO 12/16/17 Tramadol Hcl (TRAMADOL HCL) 50 Mg Tablet 1 TAB PO Q6H Y for PAIN, #12 MG TAKE ONE TABLETS BY MOUTH EVERY SIX HOURS NEEDED Prov: KEN KIMBROUGH DO 12/16/17 Patient Instructions: Tonsillitis (ED) Additional Instructions: Follow-up with Dr. Pastor Problem Qualifiers KEN KIMBROUGH DO Dec 15, 2017 23:34
[2017-12-16] MEDS ORDERED: DEXAMETHASONE 4 MG TAB PO ONE (00:10)
[2017-12-16] MEDS ORDERED: traMADol 50 MG TAB TH 2 TAB/BOTTLE PO ONE (00:10)
[2017-12-16] MEDS ORDERED: TRAM-420 PO (00:15)
[2017-12-16] MEDS ORDERED: PRED20TA6 PO (00:15)
== END 2017-12-16 00:27 | disposition home or self-care (01) ==
LOC: ER 23:52
DX: J35.1 Hypertrophy of tonsils (principal); R59.1 Generalized enlarged lymph nodes
CPT/HCPCS: 87081; 87880; 99283; C9399; J8540

== ENCOUNTER → 2017-12-18 | Outpatient (CLI) | payer MEDICAID ==
[~2017-12-18] MED LIST changes: +FLUT16SP19 NS; +PANT40TA65 PO
[2017-12-18 09:32] LABS: PLATELET COUNT, AUTOMATED 266 K/uL (150-450)
== END ==
LOC: LAB 09:02
PROVIDERS: ATTEND Internal Medicine
DX: R59.9 Enlarged lymph nodes, unspecified (principal); J02.9 Acute pharyngitis, unspecified
CPT/HCPCS: 36415; 82040; 82247; 82310; 82374; 82435; 82565; 82947; 84075; 84132; 84155; 84295; 84443; 84450; 84460; 84520; 85025; 85651; 86140

== ENCOUNTER → 2017-12-30 | Outpatient (CLI) | payer MEDICAID | LOC: LAB 11:43 | PROVIDERS: ATTEND Internal Medicine | DX: J02.9 Acute pharyngitis, unspecified (principal); R59.9 Enlarged lymph nodes, unspecified; R94.5 Abnormal results of liver function studies; J35.1 Hypertrophy of tonsils | CPT/HCPCS: 36415; 80074; 82040; 82247; 82310; 82374; 82435; 82565; 82728; 82947; 83540; 83550; 84075; 84132; 84155; 84295; 84450; 84460; 84520; 86038; 86703 ==

== ENCOUNTER → 2018-02-19 | Outpatient (CLI) | payer MEDICAID ==
[~2018-02-19] MED LIST changes: +HYDR28.33 RC; +IBUP800T37 PO; +POLY17PO25 PO
--- NOTE | 2018-02-19 15:01 | RADIOLOGY IMAGING REPORT ---
FACILITY: [facility] PATIENT NAME: Laurence Garcia : 1995 MR: [id number] V: [id number] EXAM DATE: ORDERING PHYSICIAN: JOYCE DURAN TECHNOLOGIST: Location: [facility] Patient: Laurence Garcia : 1995 Visit/Account:[id number] Date of Sevice: 02/19/2018 LIVER HISTORY: see dx COMPARISON: Elevated LFTs FINDINGS: Gallbladder: Unremarkable; no stones or sludge. Liver: Negative. Common duct: Normal, 3.7 mm diameter. Pancreas: Obscured by bowel gas Right kidney: Right kidney appears unremarkable measuring 10.2 cm in length Upper abdominal aorta and IVC: Patent. Ascites: None visualized. IMPRESSION: Unremarkable right upper quadrant ultrasound Report Dictated By: Elvia Watt MD at 02/19/2018 2:36 PM Report E-Signed By: Elvia Watt MD at 02/19/2018 2:57 PM WSN:[email or web address]
--- NOTE | 2018-02-19 15:22 | RADIOLOGY IMAGING REPORT ---
FACILITY: [facility] [place] PATIENT NAME: Laurence Garcia : 1995 MR: [id number] V: [id number] EXAM DATE: ORDERING PHYSICIAN: JOYCE DURAN TECHNOLOGIST: Location: [facility] [place] Patient: Laurence Garcia : 1995 Visit/Account:[id number] Date of Sevice: 02/19/2018 Exam type: SOFT TISSUE HEAD NECK History: Pharyngitis, enlarged cervical lymph nodes Comparison: CT soft tissue the neck August 17, 2017. Findings: There are multiple right-sided cervical lymph nodes. The largest in zone two lymph nodes measures 2. 8 x 1.7 x 1.3 cm. The largest level three lymph node on the right measures 1.5 x 1.2 x 0.3 cm. The largest level four lymph node on the right measures 1.2 x 0.9 x 0.3 cm. There are multiple left-sided cervical lymph nodes present. The largest level one lymph node measur es 2 x 0.9 x 0.9 cm. The largest level two lymph node measures 1.7 x 1.2 x 0.7 cm. The largest leve l five lymph node measures 2 x 0.9 x 0.3 cm. Incidentally noted is a 9 mm left parotid cyst IMPRESSION: 1. Multiple enlarged bilateral cervical lymph nodes. These may be reactive in light of clinical his tory of pharyngitis however the patient did have enlarged cervical lymph nodes on the prior neck CT f rom August 17, 2017 therefore if symptoms persist a follow-up neck CT with contrast may be helpful Report Dictated By: Elvia Watt MD at 02/19/2018 3:10 PM Report E-Signed By: Elvia Watt MD at 02/19/2018 3:17 PM WSN:[email or web address]
== END ==
LOC: US 01-06 02:05
PROVIDERS: ATTEND Internal Medicine
DX: R59.0 Localized enlarged lymph nodes (principal)
CPT/HCPCS: 76536; 76705

== ENCOUNTER → 2018-03-29 | Outpatient (CLI) | payer MEDICAID ==
[~2018-03-29] MED LIST changes: +BARIUM SULFATE 176 GM BTL PO ONE; +BARIUM SULFATE 340 GM POWD ONE; +IOPAMIDOL 76% 75 ML INFUS BTL 75 ML ONE
[2018-03-29 10:52] LABS: PLATELET COUNT, AUTOMATED 307 K/uL (150-450)
--- NOTE | 2018-03-29 17:28 | RADIOLOGY IMAGING REPORT ---
FACILITY: [facility] PATIENT NAME: Laurence Garcia : 1995 MR: [id number] V: [id number] EXAM DATE: ORDERING PHYSICIAN: DEQUAN MADERA TECHNOLOGIST: Location: [facility] Patient: Laurence Garcia : 1995 Visit/Account:[id number] Date of Sevice: 03/29/2018 NECK SOFT TISSUE W W/O CONTR INDICATION: Lymphadenopathy COMPARISON: August 17, 2017 TECHNIQUE: Pre and postcontrast neck CT was performed with sagittal and coronal reformations. 75 mL I sovue-370 injected. One of the following dose optimization techniques was utilized in the performance of this exam: automated exposure control; adjustment of the mA and/or kV according to patient size; or use of iterative reconstruction technique. Specific details can be referenced in the facility's r adiology CT exam operational policy. FINDINGS: The parotid glands, submandibular glands and thyroid gland are normal. Variant aberrant right subclavian artery noted. Mild to moderate tonsillar pillar hypertrophy has decreased. No enlarged or suspicious appearing neck lymph nodes. Bilateral level 2 lymph nodes have decreased in size compared to prior. Otherwise unremarkable neck soft tissues. The visible intracranial structures are normal. Normal orbital soft tissues. The visible lung apices are clear. Small bilateral maxillary sinus mucous retention cysts noted. IMPRESSION: 1. No enlarged or suspicious appearing neck lymph nodes. 2. Mild to moderate reactive bilateral tonsillar pillar enlargement has decreased in size. 3. Otherwise normal neck CT. Report Dictated By: Sánchez Thompson MD at 03/29/2018 5:16 PM Report E-Signed By: Sánchez Thompson MD at 03/29/2018 5:23 PM WSN:[email or web address]
--- NOTE | 2018-03-29 17:34 | RADIOLOGY IMAGING REPORT ---
FACILITY: [facility] [place] PATIENT NAME: Laurence Garcia : 1995 MR: [id number] V: [id number] EXAM DATE: [id number] ORDERING PHYSICIAN: DEQUAN MADERA TECHNOLOGIST: Location: [facility] Patient: Laurence Garcia : 1995 Visit/Account:[id number] Date of Sevice: 03/29/2018 Exam type: ESOPHAGRAM History: Difficulty swallowing x6 months, worse with pills Comparison: None. Findings: Double contrast esophagram was performed with thick and thin barium and air contrast. There is extri nsic compression on the upper thoracic esophagus. Correlation with the patient's prior CT of the [place] st from July 13, 2017 demonstrates an aberrant right subclavian artery which passes posterior to the esophagus likely accounting for this finding no other esophageal narrowing is identified. There was a moderate amount of gastroesophageal reflux observed no evidence of mucosal erosion. The fluorosco py dose area product was 486.71 micro-Mcnamara per meter squared IMPRESSION: 1. There is extrinsic compression on the upper thoracic esophagus which appears to be related to an aberrant right subclavian artery as seen on the prior CT of the chest from July 13, 2017. No other narrowing identified within the esophagus Moderate gastroesophageal reflux was observed Report Dictated By: Elvia Watt MD at 03/29/2018 5:23 PM Report E-Signed By: Elvia Watt MD at 03/29/2018 5:29 PM WSN:[email or web address]
== END ==
LOC: LAB 09:46
PROVIDERS: ATTEND Surgery
DX: R59.0 Localized enlarged lymph nodes (principal); K21.9 Gastro-esophageal reflux disease without esophagitis; K22.2 Esophageal obstruction; R19.7 Diarrhea, unspecified; K92.0 Hematemesis; R61 Generalized hyperhidrosis
CPT/HCPCS: 36415; 70492; 74220; 82248; 83516; 85025; 85651; 86140; 86592; 86703; Q9967; 82040; 82247; 82310; 82374; 82435; 82565; 82947; 84075; 84132; 84155; 84295; 84450; 84460; 84520